=== PATIENT | male | born 1950 | race Caucasian/White ===

== ENCOUNTER 2023-09-22 23:14 | Emergency (ER) | payer OTHER | END 2023-09-23 03:17 | disposition home or self-care (01) | LOC: JER 23:14 | DX: R45.6 Violent behavior (principal); R45.1 Restlessness and agitation | CPT/HCPCS: 99283-25 ==

== ENCOUNTER 2023-10-02 17:56 | Inpatient (IN) | payer OTHER ==
[2023-10-02 18:33] VITALS: BMI 28.3
[2023-10-02 20:03] LABS: BASO % 0.6 % (0-2.0); EOS % 1.2 % (0-4.5); HEMATOCRIT 43.6 % (35.4-49); HEMOGLOBIN 14.8 GM/dL (11.7-16.9); LYMPH % 14.6 % (8-40); MCH 30.7 pg (25.7-33.7); MCHC 34.1 g/dl (32.0-35.9); MEAN CELL VOLUME 90.3 fl (80-96); MEAN PLT VOLUME 8.3 fl (7.5-11.1); NEUT % 76.6 % (42.8-82.8); PLATELET COUNT 208 10^3/uL (134-434); RBC 4.83 M/mm3 (4.00-5.60); RDW 16.4 % (11.9-15.9); WHITE BLOOD COUNT 9.8 K/mm3 (4.0-10.0)
[2023-10-02 20:16] LABS: INR 1.28 (0.83-1.09); PROTHROMBIN TIME (PATIENT) 14.8 SEC (9.7-13.0)
[2023-10-02 20:18] LABS: ACTIVATED PTT 37.4 SECONDS (25.2-36.5)
[2023-10-02 20:20] LABS: POTASSIUM 5.6 mmol/L (3.5-5.1)
[2023-10-02 20:22] LABS: CALCIUM 9.1 mg/dL (8.5-10.1)
[2023-10-02 20:23] LABS: ALBUMIN 3.6 g/dl (3.4-5.0); BLOOD UREA NITROGEN 17.1 mg/dL (7-18)
[2023-10-02 20:26] LABS: CREATININE 0.8 mg/dL (0.55-1.3)
[2023-10-02 20:27] LABS: BILIRUBIN,TOTAL 0.9 mg/dL (0.2-1); TOT PROT 7.4 g/dl (6.4-8.2)
[2023-10-02] MEDS: SODIUM CHLORIDE 0.9% 500 ML INFUS.BAG IV ONE (21:08)
[2023-10-02 21:44] LABS: CHLORIDE 96 mmol/L (98-107); SODIUM 135 mmol/L (136-145)
[2023-10-02 21:45] LABS: BLOOD UREA NITROGEN 18.2 mg/dL (7-18); CO2 28 mmol/L (21-32); GLUCOSE,RANDOM 100 mg/dL (74-106)
[2023-10-02 21:49] LABS: CREATININE 0.8 mg/dL (0.55-1.3)
[2023-10-02 21:55] LABS: ANION GAP 11 mmol/L (4-13); POTASSIUM 6.3 mmol/L (3.5-5.1)
[2023-10-02 22:58] LABS: POTASSIUM 4.5 mmol/L (3.5-5.1)
[2023-10-02 22:59] LABS: CALCIUM 9.2 mg/dL (8.5-10.1)
[2023-10-02 23:00] LABS: BLOOD UREA NITROGEN 16.4 mg/dL (7-18)
[2023-10-02 23:03] LABS: CREATININE 0.9 mg/dL (0.55-1.3)
[2023-10-03] MEDS ORDERED: ACETAMINOPHEN 325 MG TABLET (FP) ONE (01:40)
[2023-10-03] MEDS: ACETAMINOPHEN 500 MG TABLET (FP) PO ONE (02:13)
[2023-10-03 03:30] LABS: PH,URINE 6.5 (5.0-8.0); URINE APPEARANCE CLEAR; URINE BILIRUBIN NEGATIVE (NEGATIVE); URINE COLOR YELLOW; URINE GLUCOSE (UA) NEGATIVE (NEGATIVE); URINE KETONE TRACE (NEGATIVE); URINE LEUK ESTERASE NEGATIVE (NEGATIVE); URINE NITRITE NEGATIVE (NEGATIVE); URINE PROTEIN NEGATIVE (NEGATIVE); URINE UROBILINOGEN 0.2 mg/dL (0.2-1.0)
[2023-10-03 06:16] LABS: BASO % 0.9 % (0-2.0); EOS % 2.9 % (0-4.5); HEMATOCRIT 42.5 % (35.4-49); HEMOGLOBIN 14.1 GM/dL (11.7-16.9); LYMPH % 21.1 % (8-40); MCH 30.3 pg (25.7-33.7); MCHC 33.2 g/dl (32.0-35.9); MEAN CELL VOLUME 91.1 fl (80-96); MEAN PLT VOLUME 8.8 fl (7.5-11.1); MONO % 10.4 % (3.8-10.2); NEUT % 64.7 % (42.8-82.8); PLATELET COUNT 211 10^3/uL (134-434); RBC 4.66 M/mm3 (4.00-5.60); RDW 16.5 % (11.9-15.9); WHITE BLOOD COUNT 7.1 K/mm3 (4.0-10.0)
[2023-10-03 06:33] LABS: POTASSIUM 4.9 mmol/L (3.5-5.1)
[2023-10-03 06:38] LABS: ALBUMIN 3.2 g/dl (3.4-5.0); BLOOD UREA NITROGEN 21.6 mg/dL (7-18); CALCIUM 8.8 mg/dL (8.5-10.1)
[2023-10-03 06:39] LABS: CHOLESTEROL 165 mg/dL (50-200); MAGNESIUM 1.8 mg/dL (1.8-2.4)
[2023-10-03 06:40] LABS: LDL CHOLESTEROL (ONLY SJRH) 89 mg/dL (5-100)
[2023-10-03 06:41] LABS: CREATININE 0.8 mg/dL (0.55-1.3); HDL CHOLESTEROL 68 mg/dL (40-60); PHOSPHOROUS 4.1 mg/dL (2.5-4.9)
[2023-10-03 06:43] LABS: BILIRUBIN,TOTAL 0.7 mg/dL (0.2-1); TOT PROT 6.6 g/dl (6.4-8.2)
[2023-10-03 09:08] LABS: PHENCYCLIDINE,URINE NEGATIVE (NEGATIVE); URINE BENZODIAZEPINES NEGATIVE (NEGATIVE)
[2023-10-03 09:09] LABS: COCAINE, UR NEGATIVE (NEGATIVE); METHADONE, UR NEGATIVE (NEGATIVE); URINE BARBITURATES NEGATIVE (NEGATIVE)
[2023-10-03 09:10] LABS: OPIATES, URI NEGATIVE (NEGATIVE); URINE AMPHETAMINES NEGATIVE (NEGATIVE)
[2023-10-03] MEDS ORDERED: APIXABAN 5 MG TABLET ONE (09:11)
[2023-10-03] MEDS: APIXABAN 5 MG TABLET PO SCH (09:26)
[2023-10-03] MEDS ORDERED: DIVALPROEX SODIUM 500 MG TABLET E.C. ONE (14:25)
[2023-10-03] MEDS: DIVALPROEX SODIUM 500 MG TABLET E.C. PO SCH (14:28)
[2023-10-03] MEDS ORDERED: ATORVASTATIN CA 20 MG TABLET (FP) ONE (17:33)
[2023-10-03] MEDS: ATORVASTATIN CA 20 MG TABLET (FP) PO ONE (17:36)
[2023-10-04] MEDS: ATORVASTATIN CA 20 MG TABLET (FP) PO SCH (21:28)
[2023-10-05] MEDS: ACETAMINOPHEN 325 MG TABLET (FP) PO PRN (01:26)
[2023-10-05] MEDS: OLANZapine 2.5 MG TABLET PO SCH (21:23)
[2023-10-09 14:13] VITALS: RESP 18
[2023-10-10 14:27] VITALS: BP 143/62; PULSE 84; TEMP 98.2
== END 2023-10-10 19:20 | DRG 313 ==
LOC: JER 17:56 → JERBED 21:07 → OBSVTOIN 10-03 14:55 → J5S 10-03 19:54
PROVIDERS: ADMIT Internal Medicine; ATTEND Internal Medicine
DX: R07.89 Other chest pain (principal); I50.22 Chronic systolic (congestive) heart failure; I25.10 Atherosclerotic heart disease of native coronary artery without angina pectoris; J44.9 Chronic obstructive pulmonary disease, unspecified; I48.91 Unspecified atrial fibrillation; I25.2 Old myocardial infarction; I11.0 Hypertensive heart disease with heart failure; F31.9 Bipolar disorder, unspecified; F03.90 Unspecified dementia, unspecified severity, without behavioral disturbance, psychotic disturbance, mood disturbance, and anxiety; R73.9 Hyperglycemia, unspecified; E87.5 Hyperkalemia; R00.2 Palpitations
CPT/HCPCS: 36415; 71045-TC-FY; 80048; 80053; 80061; 80307; 81003; 83036; 83735; 84100; 84443; 84484; 85025; 85610; 85730; 87086; 87635; 93005; 93010; 97116-GP; 97162-GP; 99285-25; G0378

== ENCOUNTER 2024-06-29 17:52 | Inpatient (IN) | payer OTHER ==
[2024-06-29] MEDS ORDERED: ALBUTEROL SO4 2.5/IPRATROPIUM 0.5 INH SOL 3 ML VIAL.NEB. NEB ONE (18:07)
[2024-06-29] MEDS ORDERED: methylPREDNISolone NA SUCC 125 MG/2 ML VIAL ONE (18:08)
[2024-06-29] MEDS ORDERED: RAPID SEQUENCE INTUBATION KIT NR ONE (18:13)
[2024-06-29] MEDS ORDERED: ROCURONIUM BROMIDE 50 MG/5 ML SYRINGE ONE (18:14)
[2024-06-29] MEDS ORDERED: NOREPINEPHRINE BITARTRATE/D5W 8 MG/250 ML BAG IVPB ONE (18:23)
[2024-06-29] MEDS: ETOMIDATE 20 MG/10 ML VIAL IVPUSH ONE (18:24)
[2024-06-29] MEDS: ROCURONIUM BROMIDE 50 MG/5 ML VIAL IV ONE (18:24)
[2024-06-29] MEDS: ALBUTEROL SO4 2.5/IPRATROPIUM 0.5 INH SOL 3 ML VIAL.NEB. NEB ONE (18:36)
[2024-06-29] MEDS: methylPREDNISolone NA SUCC 125 MG/2 ML VIAL IVPB ONE (18:36)
[2024-06-29] MEDS: SODIUM CHLORIDE 0.9% 1000 ML INFUS.BAG IV STA (18:40)
[2024-06-29] MEDS ORDERED: VANCOMYCIN 1 GM PREMIX (F) 1 GM/200 ML BAG ONE ×2 (19:20)
[2024-06-29] MEDS ORDERED: PIPERACILLIN/TAZOB 3.375 GM 3.375 GM/50 ML BAG IVPB ONE (19:20)
[2024-06-29] MEDS: PIPERACILLIN/TAZOB 3.375 GM 3.375 GM in DEXTROSE 5%-WATER - 50 ML IVPB ONE (19:27)
[2024-06-29] MEDS ORDERED: PROPOFOL 1,000,000 MCG/100 ML VIAL ONE (19:32)
[2024-06-29] MEDS ORDERED: ACETAMINOPHEN INJECTION 100 ML ONE (19:35)
[2024-06-29] MEDS ORDERED: ACETAMINOPHEN 1000 MG/100 ML BAG IVPB PRN (19:45)
[2024-06-29 19:46] LABS: VENOUS BASE EXCESS -5.4 mmol/L (-2-2); VENOUS O2 SATURATION 59.4 % (70-80); VENOUS PCO2 60.1 mmHg (38-52); VENOUS PH 7.207 (7.310-7.410)
[2024-06-29] MEDS: VANCOMYCIN 1,000 MG in DEXTROSE 5%-WATER - 250 ML IVPB ONE (19:47)
[2024-06-29] MEDS: PROPOFOL 1,000,000 MCG/100 ML VIAL IVPB SCH (19:47)
[2024-06-29 19:48] LABS: BASO % 0.2 % (0-2.0); EOS % 0.1 % (0-4.5); EPI CELLS 0 /uL (0-25.1); HEMATOCRIT 36.7 % (35.4-49); HEMOGLOBIN 12.1 GM/dL (11.7-16.9); HYALINE CASTS 2 /uL (0-3.1); LYMPH % 6.9 % (8-40); MCH 31.7 pg (25.7-33.7); MCHC 33.1 g/dl (32.0-35.9); MEAN PLT VOLUME 8.9 fl (7.5-11.1); MONO % 8.9 % (3.8-10.2); NEUT % 83.9 % (42.8-82.8); PLATELET COUNT 423 10^3/uL (134-434); RBC 3.82 M/mm3 (4.00-5.60); RDW 16.2 % (11.9-15.9); URINE APPEARANCE CLOUDY; URINE BACTERIA 397 /uL (0-1359); URINE BILIRUBIN 1+ (NEGATIVE); URINE COLOR DK YELLOW; URINE GLUCOSE (UA) NEGATIVE (NEGATIVE); URINE KETONE TRACE (NEGATIVE); URINE LEUK ESTERASE 1+ (NEGATIVE); URINE NITRITE NEGATIVE (NEGATIVE); URINE PROTEIN TRACE (NEGATIVE); URINE RBC 63 /uL (0-23.9); URINE WBC 266 /uL (0-25.8); WHITE BLOOD COUNT 11.8 K/mm3 (4.0-10.0)
[2024-06-29] MEDS: ACETAMINOPHEN 1000 MG/100 ML BAG IVPB ONE (19:48)
[2024-06-29] MEDS ORDERED: SODIUM CHLORIDE FOR INHALATION 3 ML VIAL.NEB IH PRN (19:49)
[2024-06-29 19:52] LABS: INR 1.5 (0.83-1.09); PROTHROMBIN TIME (PATIENT) 16.8 SEC (9.7-13.0)
[2024-06-29 19:55] LABS: ACTIVATED PTT 34.3 SECONDS (25.2-36.5)
[2024-06-29] MEDS ORDERED: PANTOPRAZOLE SODIUM 40 MG VIAL ONE (20:03)
[2024-06-29 20:08] LABS: POTASSIUM 4.7 mmol/L (3.5-5.1)
[2024-06-29 20:10] LABS: CALCIUM 8.5 mg/dL (8.5-10.1)
[2024-06-29 20:11] LABS: ALBUMIN 1.8 g/dl (3.4-5.0); BLOOD UREA NITROGEN 46.9 mg/dL (7-18)
[2024-06-29 20:15] LABS: CREATININE 1.2 mg/dL (0.55-1.3)
[2024-06-29 20:17] LABS: BILIRUBIN,TOTAL 0.7 mg/dL (0.2-1); TOT PROT 6.4 g/dl (6.4-8.2)
[2024-06-29 20:18] LABS: LACTIC ACID 3.7 mmol/L (0.4-2.0)
[2024-06-29] MEDS: FENTANYL NS IVPB 500 MCG/100 ML BAG IVPB SCH (20:35)
[2024-06-29] MEDS ORDERED: ONDANSETRON 4 MG/2 ML VIAL IVPUSH PRN (21:00)
[2024-06-29] MEDS: CHLORHEXIDINE GLUCONATE 4% CLEANSER FOR DECOLONIZATION TP SCH (21:05)
[2024-06-29] MEDS: LACTATED RINGERS SOLUTION 1000 ML INFUS.BAG IV ONE (21:30)
[2024-06-29] MEDS: NOREPINEPHRINE BITARTRATE 4,000 MCG in DEXTROSE 5%-WATER - 496 ML IV SCH (21:30)
[2024-06-29] MEDS ORDERED: NOREPINEPHRINE BITARTRATE 4 MG/4 ML ML IV ONE (21:35)
[2024-06-29] MEDS: MUPIROCIN 2% TOPICAL OINTMENT FOR DECOLONIZATION NS SCH (22:41)
[2024-06-29] MEDS: APIXABAN 5 MG TABLET OG SCH (23:00)
[2024-06-29] MEDS: ATORVASTATIN CA 20 MG TABLET (FP) PO SCH (23:00)
[2024-06-29] MEDS: PANTOPRAZOLE 40 MG TABLET PO SCH (23:00)
[2024-06-30] MEDS: NOREPINEPHRINE BITARTRATE/D5W 8 MG/250 ML BAG IVPB SCH
[2024-06-30] MEDS: HYDROCORTISONE SOD SUCCINATE 100 MG/2 ML VIAL IVPB SCH (00:05)
[2024-06-30 00:30] LABS: ARTERIAL BLD GAS O2 SATURATION 98.7 % (95-98); ARTERIAL BLOOD GAS BASE EXCESS -4.6 mmol/L (-2-2); ARTERIAL BLOOD GAS PO2 146.8 mmHg (80-100); ARTERIAL BLOOD GAS pH 7.309 (7.350-7.450)
[2024-06-30 01:25] LABS: CHLORIDE 108 mmol/L (98-107); POTASSIUM 4.8 mmol/L (3.5-5.1); SODIUM 138 mmol/L (136-145)
[2024-06-30 01:28] LABS: CALCIUM 7.6 mg/dL (8.5-10.1); MAGNESIUM 1.8 mg/dL (1.8-2.4)
[2024-06-30 01:29] LABS: ANION GAP 6 mmol/L (4-13); BLOOD UREA NITROGEN 47.3 mg/dL (7-18); CO2 25 mmol/L (21-32); GLUCOSE,RANDOM 205 mg/dL (74-106)
[2024-06-30 01:31] LABS: BILIRUBIN,DIRECT 0.3 mg/dL (0.0-0.2); SGOT/AST 103 U/L (15-37); SGPT/ALT 42 U/L (13-61)
[2024-06-30 01:32] LABS: PHOSPHOROUS 5.4 mg/dL (2.5-4.9)
[2024-06-30 01:33] LABS: ALBUMIN 1.3 g/dl (3.4-5.0); TOT PROT 4.8 g/dl (6.4-8.2)
[2024-06-30 01:35] LABS: ALK PHOS 89 U/L (45-117); BILIRUBIN,TOTAL 0.5 mg/dL (0.2-1)
[2024-06-30] MEDS ORDERED: methylPREDNISolone NA SUCC 40 MG/1 ML VIAL IVPUSH SCH (02:00)
[2024-06-30] MEDS: PIPERACILLIN/TAZOB 4.5 GM 4.5 GM/100 ML BAG IVPB SCH (02:22)
[2024-06-30] MEDS: VASopressin 40 UNITS/100 ML BAG IV SCH (06:57)
[2024-06-30 07:43] LABS: ARTERIAL BLD GAS O2 SATURATION 96.5 % (95-98); ARTERIAL BLOOD GAS PO2 88.3 mmHg (80-100); ARTERIAL BLOOD GAS pH 7.368 (7.350-7.450)
[2024-06-30 07:45] LABS: BASO % 0.1 % (0-2.0); HEMATOCRIT 28.7 % (35.4-49); HEMOGLOBIN 9.6 GM/dL (11.7-16.9); LYMPH % 4.7 % (8-40); MCH 31.8 pg (25.7-33.7); MCHC 33.6 g/dl (32.0-35.9); MEAN CELL VOLUME 94.7 fl (80-96); MEAN PLT VOLUME 8.4 fl (7.5-11.1); MONO % 5.7 % (3.8-10.2); NEUT % 89.5 % (42.8-82.8); PLATELET COUNT 415 10^3/uL (134-434); RBC 3.03 M/mm3 (4.00-5.60); RDW 16.1 % (11.9-15.9); WHITE BLOOD COUNT 15.3 K/mm3 (4.0-10.0)
[2024-06-30] MEDS ORDERED: VANCOMYCIN HCL 1,500 MG in DEXTROSE 5%-WATER - 500 ML IVPB SCH (08:00)
[2024-06-30] MEDS: MIDAZOLAM IN 0.9 % SOD.CHLORID 100 MG/100 ML PLAST..BAG IVPB SCH (08:12)
[2024-06-30] MEDS: ALBUTEROL SO4 2.5/IPRATROPIUM 0.5 INH SOL 3 ML VIAL.NEB. NEB SCH (08:39)
[2024-06-30] MEDS: INSULIN ASPART SLIDING SCALE (NOVOLOG) 1 VIAL SQ SCH (08:57)
[2024-06-30] MEDS: VANCOMYCIN PREMIX 1.5 GM 1,500 MG/300 ML BAG IVPB SCH (08:58)
[2024-06-30] MEDS ORDERED: ENOXAPARIN NA (PORCINE) 40 MG/0.4 ML DISP.SYRIN SQ SCH (10:00)
[2024-06-30] MEDS: DOPAMINE 400 MG/D5W - 400,000 MCG/250 ML INFUS.BAG IVPB SCH (11:20)
[2024-06-30] MEDS: ARIPiprazole 10 MG TABLET PO SCH (11:46)
[2024-06-30] MEDS: PANTOPRAZOLE SODIUM 40 MG VIAL IVPUSH SCH (12:05)
[2024-06-30] MEDS: VANCOMYCIN/WATER 1250 MG 1,250 MG/250 ML BAG IVPB SCH (21:49)
[2024-06-30] MEDS: LACTATED RINGERS SOLUTION 1000 ML INFUS.BAG IV ONE (23:10)
[2024-07-01] MEDS: PIPERACILLIN/TAZOB 4.5 GM 4.5 GM/100 ML BAG IVPB SCH (01:31)
[2024-07-01 06:20] LABS: ARTERIAL BLD GAS O2 SATURATION 99.1 % (95-98); ARTERIAL BLOOD GAS BASE EXCESS -3.7 mmol/L (-2-2); ARTERIAL BLOOD GAS PO2 165.7 mmHg (80-100); ARTERIAL BLOOD GAS pH 7.377 (7.350-7.450)
[2024-07-01 06:25] LABS: VENT MODE ALC; VENT RATE 14
[2024-07-01] MEDS: LACTATED RINGERS SOLUTION 1000 ML INFUS.BAG IV ONE (06:54)
[2024-07-01 07:15] LABS: HEMATOCRIT 24.9 % (35.4-49); HEMOGLOBIN 8.4 GM/dL (11.7-16.9); LYMPH % 7.2 % (8-40); MCH 31.8 pg (25.7-33.7); MCHC 33.8 g/dl (32.0-35.9); MEAN CELL VOLUME 93.9 fl (80-96); MEAN PLT VOLUME 8.3 fl (7.5-11.1); MONO % 6.3 % (3.8-10.2); NEUT % 86.5 % (42.8-82.8); PLATELET COUNT 293 10^3/uL (134-434); RBC 2.65 M/mm3 (4.00-5.60); RDW 16.3 % (11.9-15.9); WHITE BLOOD COUNT 9.7 K/mm3 (4.0-10.0)
[2024-07-01 07:22] LABS: POTASSIUM 4.1 mmol/L (3.5-5.1)
[2024-07-01 07:30] LABS: ALBUMIN 1.3 g/dl (3.4-5.0); BLOOD UREA NITROGEN 43.4 mg/dL (7-18)
[2024-07-01 07:33] LABS: CREATININE 0.6 mg/dL (0.55-1.3); PHOSPHOROUS 3.6 mg/dL (2.5-4.9)
[2024-07-01 07:34] LABS: BILIRUBIN,TOTAL 0.5 mg/dL (0.2-1); TOT PROT 4.6 g/dl (6.4-8.2)
[2024-07-01] MEDS: FLUDROCORTISONE ACETATE 0.1 MG TABLET (FP) PO SCH (10:17)
[2024-07-01] MEDS: VALPROATE SODIUM 250 MG/5 ML UNIT DOSE CUP NGT SCH (17:27)
[2024-07-01 21:20] LABS: HEMATOCRIT 28.8 % (35.4-49); MCH 30.9 pg (25.7-33.7); MCHC 31.1 g/dl (32.0-35.9); MEAN CELL VOLUME 99.3 fl (80-96); MEAN PLT VOLUME 8.1 fl (7.5-11.1); PLATELET COUNT 334 10^3/uL (134-434); RDW 17.3 % (11.9-15.9); WHITE BLOOD COUNT 11.2 K/mm3 (4.0-10.0)
[2024-07-01] MEDS: OLANZapine 2.5 MG TABLET NGT SCH (21:35)
[2024-07-01] MEDS: ATORVASTATIN CA 20 MG TABLET (FP) NGT SCH (21:35)
[2024-07-01] MEDS ORDERED: APIXABAN 5 MG TABLET OG SCH (22:00)
[2024-07-01] MEDS ORDERED: ATORVASTATIN CA 20 MG TABLET (FP) PO SCH (22:00)
[2024-07-01] MEDS ORDERED: OLANZapine 2.5 MG TABLET PO SCH (22:00)
[2024-07-01] MEDS ORDERED: DIVALPROEX SODIUM 500 MG TABLET E.C. PO SCH (22:00)
[2024-07-02] MEDS ORDERED: DEXMEDETOMIDINE IN 0.9 % NACL 400 MCG/100 ML BAG IVPB SCH (06:45)
[2024-07-02] MEDS ORDERED: AMIODARONE IN DEXTROSE,ISO-OSM 360 MG/200 ML BAG ONE (06:47)
[2024-07-02] MEDS ORDERED: AMIODARONE HCL 150 MG/3 ML VIAL ONE (06:49)
[2024-07-02 06:55] LABS: HEMATOCRIT 26.7 % (35.4-49); HEMOGLOBIN 8.6 GM/dL (11.7-16.9); MCH 30.8 pg (25.7-33.7); MCHC 32.3 g/dl (32.0-35.9); MEAN CELL VOLUME 95.3 fl (80-96); MEAN PLT VOLUME 8.2 fl (7.5-11.1); PLATELET COUNT 370 10^3/uL (134-434); RDW 16.5 % (11.9-15.9); WHITE BLOOD COUNT 10.6 K/mm3 (4.0-10.0)
[2024-07-02] MEDS: AMIODARONE IN DEXTROSE,ISO-OSM 150 MG/100 ML BAG IVPB ONE (07:06)
[2024-07-02 07:14] LABS: POTASSIUM 3.7 mmol/L (3.5-5.1)
[2024-07-02 07:16] LABS: CALCIUM 8.3 mg/dL (8.5-10.1); MAGNESIUM 2.1 mg/dL (1.8-2.4)
[2024-07-02 07:17] LABS: ALBUMIN 1.3 g/dl (3.4-5.0)
[2024-07-02 07:18] LABS: BLOOD UREA NITROGEN 37.1 mg/dL (7-18)
[2024-07-02 07:21] LABS: BILIRUBIN,TOTAL 0.3 mg/dL (0.2-1); CREATININE 0.6 mg/dL (0.55-1.3); PHOSPHOROUS 1.7 mg/dL (2.5-4.9); TOT PROT 4.5 g/dl (6.4-8.2)
[2024-07-02] MEDS: MAGNESIUM SULFATE IN WATER 2 GM/50 ML IVPB IVPB ONE (08:02)
[2024-07-02] MEDS: APIXABAN 5 MG TABLET PO SCH (09:03)
[2024-07-02] MEDS: CLOPIDOGREL BISULFATE 75 MG TABLET (FP) NGT SCH (09:03)
[2024-07-02] MEDS: ASPIRIN 81 MG CHEWABLE TABLETS NGT SCH (09:03)
[2024-07-02] MEDS: ARIPiprazole 10 MG TABLET PO SCH (09:04)
[2024-07-02] MEDS ORDERED: ASPIRIN COATED 81 MG TABLET.EC PO SCH (10:00)
[2024-07-02] MEDS ORDERED: CLOPIDOGREL BISULFATE 75 MG TABLET (FP) PO SCH (10:00)
[2024-07-02] MEDS: DIVALPROEX SODIUM 500 MG TABLET E.C. PO SCH (12:52)
[2024-07-02] MEDS: NAPH,MB-DB/K PH,MBDB POWDER PACKET PO ONE (12:52)
[2024-07-02 14:35] VITALS: BMI 24.1
[2024-07-02] MEDS ORDERED: METOPROLOL TARTRATE 5 MG/5 ML VIAL IVPUSH PRN (15:12)
[2024-07-02] MEDS: METOPROLOL TARTRATE 5 MG/5 ML VIAL IVPUSH PRN (15:30)
[2024-07-02] MEDS: ATORVASTATIN CA 20 MG TABLET (FP) PO SCH (21:12)
[2024-07-02] MEDS: DABIGATRAN ETEXILATE MESYLATE 75 MG CAPSULE PO SCH (21:12)
[2024-07-02] MEDS: OLANZapine 2.5 MG TABLET PO SCH (21:12)
[2024-07-03 07:17] LABS: HEMATOCRIT 26.1 % (35.4-49); HEMOGLOBIN 8.8 GM/dL (11.7-16.9); MCH 31.4 pg (25.7-33.7); MCHC 33.7 g/dl (32.0-35.9); MEAN CELL VOLUME 93.2 fl (80-96); MEAN PLT VOLUME 8.1 fl (7.5-11.1); PLATELET COUNT 303 10^3/uL (134-434); RDW 16.3 % (11.9-15.9); WHITE BLOOD COUNT 8.6 K/mm3 (4.0-10.0)
[2024-07-03 07:31] LABS: POTASSIUM 3.9 mmol/L (3.5-5.1)
[2024-07-03 07:38] LABS: CALCIUM 8.1 mg/dL (8.5-10.1)
[2024-07-03 07:39] LABS: ALBUMIN 1.4 g/dl (3.4-5.0); BLOOD UREA NITROGEN 27.8 mg/dL (7-18); MAGNESIUM 1.7 mg/dL (1.8-2.4)
[2024-07-03 07:41] LABS: BILIRUBIN,TOTAL 0.4 mg/dL (0.2-1); TOT PROT 4.5 g/dl (6.4-8.2)
[2024-07-03 07:42] LABS: CREATININE 0.5 mg/dL (0.55-1.3); PHOSPHOROUS 1.9 mg/dL (2.5-4.9)
[2024-07-03] MEDS: ASPIRIN 81 MG CHEWABLE TABLETS PO SCH (09:00)
[2024-07-03] MEDS: CLOPIDOGREL BISULFATE 75 MG TABLET (FP) PO SCH (09:00)
[2024-07-03] MEDS: NAPH,MB-DB/K PH,MBDB POWDER PACKET PO ONE (10:31)
[2024-07-03] MEDS: MAGNESIUM SULFATE IN WATER 2 GM/50 ML IVPB IVPB ONE (10:31)
[2024-07-03] MEDS ORDERED: MIDAZOLAM IN 0.9 % SOD.CHLORID 1 MG/1 ML PLAST..BAG ONE (14:17)
[2024-07-03] MEDS ORDERED: DEXTROSE 50%-WATER 25 GM/50 ML DISP.SYRIN ONE (14:17)
[2024-07-03] MEDS ORDERED: ONDANSETRON 4 MG/2 ML VIAL IVPUSH PRN (15:54)
[2024-07-03] MEDS ORDERED: SODIUM CHLORIDE FOR INHALATION 3 ML VIAL.NEB IH PRN (15:54)
[2024-07-03] MEDS: ALBUTEROL SO4 2.5/IPRATROPIUM 0.5 INH SOL 3 ML VIAL.NEB. NEB SCH (16:39)
[2024-07-03] MEDS: PIPERACILLIN/TAZOB 4.5 GM 4.5 GM in DEXTROSE 5%-WATER 100 ML IVPB SCH (17:48)
[2024-07-03] MEDS: AMIODARONE IN DEXTROSE,ISO-OSM 360 MG/200 ML BAG IV SCH (17:49)
[2024-07-03] MEDS: DABIGATRAN ETEXILATE MESYLATE 75 MG CAPSULE PO SCH ×2 (17:49→21:04)
[2024-07-03] MEDS: MIDAZOLAM HCL 2 MG/2 ML SINGLE DOSE VIAL IVPUSH ONE ×2 (17:49→17:50)
[2024-07-03] MEDS: ASPIRIN 81 MG CHEWABLE TABLETS NGT ONE (17:49)
[2024-07-03] MEDS: ACETAMINOPHEN 1000 MG/100 ML BAG IVPB PRN (17:57)
[2024-07-03] MEDS: PIPERACILLIN/TAZOB 4.5 GM 4.5 GM/100 ML BAG IVPB SCH (17:57)
[2024-07-03] MEDS: INSULIN ASPART SLIDING SCALE (NOVOLOG) 1 VIAL SQ SCH (19:19)
[2024-07-03] MEDS: VANCOMYCIN/WATER 1250 MG 1,250 MG/250 ML BAG IVPB SCH (21:03)
[2024-07-03] MEDS: OLANZapine 2.5 MG TABLET PO SCH (21:03)
[2024-07-03] MEDS: DIVALPROEX SODIUM 500 MG TABLET E.C. PO SCH (21:03)
[2024-07-03] MEDS: ATORVASTATIN CA 20 MG TABLET (FP) PO SCH (21:04)
[2024-07-03] MEDS ORDERED: MUPIROCIN 2% TOPICAL OINTMENT FOR DECOLONIZATION NS SCH (22:00)
[2024-07-03] MEDS ORDERED: CHLORHEXIDINE GLUCONATE 4% CLEANSER FOR DECOLONIZATION TP SCH (22:00)
[2024-07-04 08:28] LABS: BASO % 0.4 % (0-2.0); EOS % 0.8 % (0-4.5); HEMATOCRIT 27.8 % (35.4-49); HEMOGLOBIN 9.1 GM/dL (11.7-16.9); LYMPH % 12.9 % (8-40); MCH 31.1 pg (25.7-33.7); MCHC 32.9 g/dl (32.0-35.9); MEAN CELL VOLUME 94.5 fl (80-96); MEAN PLT VOLUME 8.2 fl (7.5-11.1); MONO % 5.9 % (3.8-10.2); PLATELET COUNT 302 10^3/uL (134-434); RBC 2.94 M/mm3 (4.00-5.60); RDW 16.2 % (11.9-15.9); WHITE BLOOD COUNT 11.9 K/mm3 (4.0-10.0)
[2024-07-04 08:47] LABS: POTASSIUM 3.8 mmol/L (3.5-5.1)
[2024-07-04 08:54] LABS: BLOOD UREA NITROGEN 17.2 mg/dL (7-18); CREATININE 0.4 mg/dL (0.55-1.3); MAGNESIUM 1.8 mg/dL (1.8-2.4)
[2024-07-04 08:57] LABS: PHOSPHOROUS 2.5 mg/dL (2.5-4.9)
[2024-07-04] MEDS: ASPIRIN 81 MG CHEWABLE TABLETS PO SCH (10:08)
[2024-07-04] MEDS: CLOPIDOGREL BISULFATE 75 MG TABLET (FP) PO SCH (10:08)
[2024-07-04] MEDS: ARIPiprazole 10 MG TABLET PO SCH (10:08)
[2024-07-04] MEDS: PANTOPRAZOLE SODIUM 40 MG VIAL IVPUSH SCH (10:09)
[2024-07-04] MEDS: BISMUTH SUBSALICYLATE 524 MG/30 ML PO ONE (12:03)
[2024-07-04] MEDS: AMINO ACIDS/PROTEIN HYDROLYS 30 ML LIQUID.PKT PO SCH (18:35)
[2024-07-04] MEDS: ZINC OXIDE 20% TOPICAL OINTMENT 30 GM TUBE TP SCH (18:35)
[2024-07-05 08:13] LABS: HEMATOCRIT 26.5 % (35.4-49); HEMOGLOBIN 8.7 GM/dL (11.7-16.9); MCH 30.9 pg (25.7-33.7); MCHC 32.9 g/dl (32.0-35.9); MEAN CELL VOLUME 94.1 fl (80-96); MEAN PLT VOLUME 8.6 fl (7.5-11.1); PLATELET COUNT 269 10^3/uL (134-434); RBC 2.82 M/mm3 (4.00-5.60); RDW 16.3 % (11.9-15.9)
[2024-07-05 08:33] LABS: POTASSIUM 3.6 mmol/L (3.5-5.1)
[2024-07-05 08:40] LABS: CALCIUM 7.7 mg/dL (8.5-10.1)
[2024-07-05 08:41] LABS: ALBUMIN 1.5 g/dl (3.4-5.0); BLOOD UREA NITROGEN 17.4 mg/dL (7-18); MAGNESIUM 1.7 mg/dL (1.8-2.4)
[2024-07-05 08:44] LABS: CREATININE 0.5 mg/dL (0.55-1.3); PHOSPHOROUS 2.6 mg/dL (2.5-4.9)
[2024-07-05 08:45] LABS: BILIRUBIN,TOTAL 0.6 mg/dL (0.2-1); TOT PROT 4.3 g/dl (6.4-8.2)
[2024-07-05] MEDS: traMADol HCL 50 MG TABLET PO PRN (12:25)
[2024-07-05] MEDS: MULTIVITAMINS (DAILY MVI) TABLET (FP) PO SCH (12:27)
[2024-07-05] MEDS: ASCORBIC ACID 500 MG TABLET (FP) PO SCH (12:27)
[2024-07-05] MEDS: LACTOBACILLUS ACIDOPHILUS 1 TABLET PO SCH (22:26)
[2024-07-06 08:51] LABS: HEMATOCRIT 27.5 % (35.4-49); HEMOGLOBIN 8.9 GM/dL (11.7-16.9); MCHC 32.4 g/dl (32.0-35.9); MEAN CELL VOLUME 95.9 fl (80-96); MEAN PLT VOLUME 8.6 fl (7.5-11.1); PLATELET COUNT 321 10^3/uL (134-434); POTASSIUM 3.5 mmol/L (3.5-5.1); RBC 2.87 M/mm3 (4.00-5.60); RDW 16.2 % (11.9-15.9)
[2024-07-06 08:54] LABS: ALBUMIN 1.5 g/dl (3.4-5.0); BLOOD UREA NITROGEN 16.7 mg/dL (7-18); CALCIUM 7.6 mg/dL (8.5-10.1); MAGNESIUM 1.7 mg/dL (1.8-2.4)
[2024-07-06 08:57] LABS: CREATININE 0.5 mg/dL (0.55-1.3); PHOSPHOROUS 2.5 mg/dL (2.5-4.9)
[2024-07-06 08:59] LABS: BILIRUBIN,TOTAL 0.8 mg/dL (0.2-1); TOT PROT 4.6 g/dl (6.4-8.2)
[2024-07-06 09:08] LABS: IRON SERUM 22 ug/dL (50-175)
[2024-07-06 09:09] LABS: TOTAL IRON BINDING CAPACITY 133 ug/dL (250-450)
[2024-07-06] MEDS: MAGNESIUM 2GM/50ML STERILE WATER IVPB IVPB ONE (11:26)
[2024-07-07] MEDS: VANCOMYCIN/WATER FOR INJ (PEG) 1,000 MG/200 ML BAG IVPB SCH (12:11)
[2024-07-07] MEDS: VANCOMYCIN/WATER 1250 MG 1,250 MG/250 ML BAG IVPB ONE (17:16)
[2024-07-08 08:48] LABS: BASO % 0.4 % (0-2.0); EOS % 1.1 % (0-4.5); HEMATOCRIT 25.2 % (35.4-49); HEMOGLOBIN 8.5 GM/dL (11.7-16.9); LYMPH % 11.9 % (8-40); MCH 31.8 pg (25.7-33.7); MCHC 33.7 g/dl (32.0-35.9); MEAN CELL VOLUME 94.3 fl (80-96); MEAN PLT VOLUME 8.3 fl (7.5-11.1); MONO % 7.8 % (3.8-10.2); NEUT % 78.8 % (42.8-82.8); PLATELET COUNT 336 10^3/uL (134-434); RBC 2.67 M/mm3 (4.00-5.60); RDW 16.9 % (11.9-15.9)
[2024-07-08 09:04] LABS: POTASSIUM 3.4 mmol/L (3.5-5.1)
[2024-07-08 09:08] LABS: CALCIUM 7.8 mg/dL (8.5-10.1)
[2024-07-08 09:09] LABS: ALBUMIN 1.5 g/dl (3.4-5.0)
[2024-07-08 09:12] LABS: CREATININE 0.4 mg/dL (0.55-1.3); MAGNESIUM 1.9 mg/dL (1.8-2.4)
[2024-07-08 09:14] LABS: PHOSPHOROUS 2.8 mg/dL (2.5-4.9)
[2024-07-08 09:16] LABS: BILIRUBIN,TOTAL 0.7 mg/dL (0.2-1)
[2024-07-08 09:19] LABS: TOT PROT 4.7 g/dl (6.4-8.2)
[2024-07-08] MEDS: COLLAGENASE CLOSTRIDIUM HIST. 30 GRAMS TUBE TP SCH (12:05)
[2024-07-08] MEDS ORDERED: SODIUM CHLORIDE FOR INHALATION 3 ML VIAL.NEB IH PRN (18:25)
[2024-07-08] MEDS ORDERED: ONDANSETRON 4 MG/2 ML VIAL IVPUSH PRN (18:25)
[2024-07-08] MEDS ORDERED: traMADol HCL 50 MG TABLET PO PRN (18:25)
[2024-07-08] MEDS: FUROSEMIDE 40 MG/4 ML INJECTABLE VIAL IVPUSH ONE (18:42)
[2024-07-08] MEDS: ALBUTEROL SO4 2.5/IPRATROPIUM 0.5 INH SOL 3 ML VIAL.NEB. NEB SCH (20:58)
[2024-07-08] MEDS: ATORVASTATIN CA 20 MG TABLET (FP) PO SCH (21:52)
[2024-07-08] MEDS: DABIGATRAN ETEXILATE MESYLATE 75 MG CAPSULE PO SCH (21:52)
[2024-07-08] MEDS: LACTOBACILLUS ACIDOPHILUS 1 TABLET PO SCH (21:52)
[2024-07-08] MEDS: DIVALPROEX SODIUM 500 MG TABLET E.C. PO SCH (21:52)
[2024-07-08] MEDS: ZINC OXIDE 20% TOPICAL OINTMENT 30 GM TUBE TP SCH (21:52)
[2024-07-08] MEDS: OLANZapine 2.5 MG TABLET PO SCH (21:53)
[2024-07-09] MEDS: INSULIN ASPART SLIDING SCALE (NOVOLOG) 1 VIAL SQ SCH (00:45)
[2024-07-09] MEDS: PIPERACILLIN/TAZOB 4.5 GM 4.5 GM/100 ML BAG IVPB SCH (01:07)
[2024-07-09 08:05] LABS: HEMOGLOBIN 8.4 GM/dL (11.7-16.9); MCHC 33.8 g/dl (32.0-35.9); MEAN CELL VOLUME 94.8 fl (80-96); MEAN PLT VOLUME 7.9 fl (7.5-11.1); PLATELET COUNT 354 10^3/uL (134-434); RBC 2.64 M/mm3 (4.00-5.60); RDW 16.6 % (11.9-15.9); WHITE BLOOD COUNT 8.3 K/mm3 (4.0-10.0)
[2024-07-09 08:22] LABS: POTASSIUM 3.3 mmol/L (3.5-5.1)
[2024-07-09 08:24] LABS: CALCIUM 7.6 mg/dL (8.5-10.1)
[2024-07-09 08:25] LABS: ALBUMIN 1.4 g/dl (3.4-5.0); BLOOD UREA NITROGEN 12.4 mg/dL (7-18); MAGNESIUM 1.8 mg/dL (1.8-2.4)
[2024-07-09 08:28] LABS: CREATININE 0.4 mg/dL (0.55-1.3); PHOSPHOROUS 2.7 mg/dL (2.5-4.9)
[2024-07-09 08:29] LABS: BILIRUBIN,TOTAL 0.6 mg/dL (0.2-1); TOT PROT 4.7 g/dl (6.4-8.2)
[2024-07-09] MEDS: AMINO ACIDS/PROTEIN HYDROLYS 30 ML LIQUID.PKT PO SCH (08:42)
[2024-07-09] MEDS: ARIPiprazole 10 MG TABLET PO SCH (09:58)
[2024-07-09] MEDS: ASPIRIN COATED 81 MG TABLET.EC PO SCH (09:58)
[2024-07-09] MEDS: ASCORBIC ACID 500 MG TABLET (FP) PO SCH (09:58)
[2024-07-09] MEDS: PANTOPRAZOLE SODIUM 40 MG VIAL IVPUSH SCH (09:59)
[2024-07-09] MEDS: MULTIVITAMINS (DAILY MVI) TABLET (FP) PO SCH (09:59)
[2024-07-09] MEDS: VANCOMYCIN/WATER FOR INJ (PEG) 1,000 MG/200 ML BAG IVPB SCH (10:01)
[2024-07-09] MEDS: COLLAGENASE CLOSTRIDIUM HIST. 30 GRAMS TUBE TP SCH (14:22)
[2024-07-10 10:23] LABS: BASO % 0.3 % (0-2.0); EOS % 0.3 % (0-4.5); HEMATOCRIT 24.1 % (35.4-49); HEMOGLOBIN 7.8 GM/dL (11.7-16.9); LYMPH % 5.6 % (8-40); MCH 31.1 pg (25.7-33.7); MCHC 32.5 g/dl (32.0-35.9); MEAN CELL VOLUME 95.6 fl (80-96); MEAN PLT VOLUME 7.9 fl (7.5-11.1); MONO % 3.8 % (3.8-10.2); PLATELET COUNT 384 10^3/uL (134-434); RBC 2.52 M/mm3 (4.00-5.60); RDW 17.5 % (11.9-15.9); WHITE BLOOD COUNT 15.3 K/mm3 (4.0-10.0)
[2024-07-10 10:52] LABS: POTASSIUM 3.2 mmol/L (3.5-5.1)
[2024-07-10 10:54] LABS: ALBUMIN 1.4 g/dl (3.4-5.0); BLOOD UREA NITROGEN 11.6 mg/dL (7-18); CALCIUM 7.8 mg/dL (8.5-10.1)
[2024-07-10 10:57] LABS: CREATININE 0.5 mg/dL (0.55-1.3)
[2024-07-10 10:59] LABS: BILIRUBIN,TOTAL 0.6 mg/dL (0.2-1); TOT PROT 4.7 g/dl (6.4-8.2)
[2024-07-10] MEDS: KCL 10 MEQ IVPB 10 MEQ/100 ML INFUS.BAG IVPB SCH (16:34)
[2024-07-11 07:35] LABS: BASO % 0.3 % (0-2.0); EOS % 1.5 % (0-4.5); HEMATOCRIT 23.6 % (35.4-49); HEMOGLOBIN 7.9 GM/dL (11.7-16.9); LYMPH % 12.9 % (8-40); MCH 31.8 pg (25.7-33.7); MCHC 33.3 g/dl (32.0-35.9); MEAN CELL VOLUME 95.4 fl (80-96); MONO % 6.4 % (3.8-10.2); NEUT % 78.9 % (42.8-82.8); PLATELET COUNT 385 10^3/uL (134-434); RBC 2.47 M/mm3 (4.00-5.60); RDW 18.3 % (11.9-15.9); WHITE BLOOD COUNT 10.1 K/mm3 (4.0-10.0)
[2024-07-11 07:52] LABS: POTASSIUM 3.6 mmol/L (3.5-5.1)
[2024-07-11 07:57] LABS: BLOOD UREA NITROGEN 11.7 mg/dL (7-18); CALCIUM 7.8 mg/dL (8.5-10.1)
[2024-07-11 07:58] LABS: ALBUMIN 1.4 g/dl (3.4-5.0)
[2024-07-11 08:00] LABS: CREATININE 0.4 mg/dL (0.55-1.3)
[2024-07-11 08:02] LABS: BILIRUBIN,TOTAL 0.6 mg/dL (0.2-1); TOT PROT 4.7 g/dl (6.4-8.2)
[2024-07-12 07:47] LABS: BASO % 0.3 % (0-2.0); EOS % 1.4 % (0-4.5); HEMATOCRIT 22.8 % (35.4-49); HEMOGLOBIN 7.6 GM/dL (11.7-16.9); LYMPH % 8.2 % (8-40); MCH 31.9 pg (25.7-33.7); MCHC 33.6 g/dl (32.0-35.9); MEAN CELL VOLUME 94.8 fl (80-96); MEAN PLT VOLUME 7.4 fl (7.5-11.1); MONO % 4.5 % (3.8-10.2); NEUT % 85.6 % (42.8-82.8); PLATELET COUNT 374 10^3/uL (134-434); RDW 18.1 % (11.9-15.9); WHITE BLOOD COUNT 11.8 K/mm3 (4.0-10.0)
[2024-07-12] MEDS ORDERED: MAGNESIUM 1GM/D5W 100ML - 100 ML IVPB IVPB ONE (13:45)
[2024-07-12] MEDS: MAGNESIUM 1GM/D5W 100ML - 100 ML IVPB IVPB ONE (17:47)
[2024-07-12] MEDS ORDERED: INSULIN ASPART SLIDING SCALE (NOVOLOG) 1 VIAL SQ ONE (18:30)
[2024-07-13 11:11] LABS: BASO % 0.2 % (0-2.0); EOS % 1.1 % (0-4.5); HEMATOCRIT 24.5 % (35.4-49); HEMOGLOBIN 7.8 GM/dL (11.7-16.9); LYMPH % 7.3 % (8-40); MCH 30.6 pg (25.7-33.7); MEAN CELL VOLUME 95.7 fl (80-96); MEAN PLT VOLUME 7.8 fl (7.5-11.1); MONO % 4.8 % (3.8-10.2); NEUT % 86.6 % (42.8-82.8); PLATELET COUNT 373 10^3/uL (134-434); RBC 2.56 M/mm3 (4.00-5.60); RDW 19.2 % (11.9-15.9); WHITE BLOOD COUNT 11.1 K/mm3 (4.0-10.0)
[2024-07-13 11:30] LABS: POTASSIUM 3.2 mmol/L (3.5-5.1)
[2024-07-13 11:32] LABS: ALBUMIN 1.3 g/dl (3.4-5.0)
[2024-07-13 11:33] LABS: BLOOD UREA NITROGEN 11.9 mg/dL (7-18); MAGNESIUM 1.8 mg/dL (1.8-2.4)
[2024-07-13 11:36] LABS: CREATININE 0.4 mg/dL (0.55-1.3)
[2024-07-13 11:37] LABS: BILIRUBIN,TOTAL 0.4 mg/dL (0.2-1); TOT PROT 4.6 g/dl (6.4-8.2)
[2024-07-14 09:26] LABS: BASO % 0.4 % (0-2.0); EOS % 1.8 % (0-4.5); HEMATOCRIT 21.5 % (35.4-49); LYMPH % 11.1 % (8-40); MCH 31.5 pg (25.7-33.7); MCHC 32.7 g/dl (32.0-35.9); MEAN CELL VOLUME 96.4 fl (80-96); MEAN PLT VOLUME 7.9 fl (7.5-11.1); MONO % 5.8 % (3.8-10.2); NEUT % 80.9 % (42.8-82.8); PLATELET COUNT 348 10^3/uL (134-434); RBC 2.23 M/mm3 (4.00-5.60); RDW 19.6 % (11.9-15.9); WHITE BLOOD COUNT 8.4 K/mm3 (4.0-10.0)
[2024-07-14 09:53] LABS: POTASSIUM 3.5 mmol/L (3.5-5.1)
[2024-07-14 09:58] LABS: CALCIUM 7.5 mg/dL (8.5-10.1)
[2024-07-14 09:59] LABS: ALBUMIN 1.2 g/dl (3.4-5.0); MAGNESIUM 1.8 mg/dL (1.8-2.4)
[2024-07-14 10:02] LABS: CREATININE 0.4 mg/dL (0.55-1.3)
[2024-07-14 10:03] LABS: BILIRUBIN,TOTAL 0.4 mg/dL (0.2-1)
[2024-07-14] MEDS: CALCIUM 500MG/VIT-D 200 UNITS COMBO TABLET (FP) PO SCH (12:00)
[2024-07-14] MEDS: PANTOPRAZOLE SODIUM 40 MG VIAL IVPUSH SCH (22:16)
[2024-07-15 08:58] LABS: BASO % 0.6 % (0-2.0); EOS % 2.2 % (0-4.5); HEMATOCRIT 25.4 % (35.4-49); HEMOGLOBIN 8.1 GM/dL (11.7-16.9); LYMPH % 11.4 % (8-40); MCH 31.4 pg (25.7-33.7); MCHC 31.9 g/dl (32.0-35.9); MEAN CELL VOLUME 98.5 fl (80-96); MEAN PLT VOLUME 7.9 fl (7.5-11.1); NEUT % 78.8 % (42.8-82.8); PLATELET COUNT 394 10^3/uL (134-434); RBC 2.58 M/mm3 (4.00-5.60); RDW 20.9 % (11.9-15.9); WHITE BLOOD COUNT 9.2 K/mm3 (4.0-10.0)
[2024-07-15 09:27] LABS: ALBUMIN 1.4 g/dl (3.4-5.0); BLOOD UREA NITROGEN 12.5 mg/dL (7-18); CREATININE 0.4 mg/dL (0.55-1.3)
[2024-07-15 09:28] LABS: BILIRUBIN,TOTAL 0.5 mg/dL (0.2-1); CALCIUM 7.9 mg/dL (8.5-10.1); TOT PROT 4.9 g/dl (6.4-8.2)
[2024-07-15 09:59] LABS: ANISOCYTOSIS 2+; MACROCYTOSIS 1+
[2024-07-15] MEDS: ACETAMINOPHEN 1000 MG/100 ML BAG IVPB PRN (11:14)
[2024-07-15] MEDS: GABAPENTIN 100 MG CAPSULE PO SCH (14:36)
[2024-07-15] MEDS: IRON SUCROSE INJECTION 100 MG in SODIUM CHLORIDE 95 ML IVPB ONE (18:49)
[2024-07-16 15:06] VITALS: RESP 20
[2024-07-16 19:47] LABS: BASO % 0.4 % (0-2.0); EOS % 1.8 % (0-4.5); HEMATOCRIT 27.1 % (35.4-49); HEMOGLOBIN 8.4 GM/dL (11.7-16.9); LYMPH % 7.8 % (8-40); MCH 30.5 pg (25.7-33.7); MCHC 31.1 g/dl (32.0-35.9); MEAN CELL VOLUME 98.2 fl (80-96); MEAN PLT VOLUME 7.7 fl (7.5-11.1); MONO % 4.5 % (3.8-10.2); NEUT % 85.5 % (42.8-82.8); PLATELET COUNT 363 10^3/uL (134-434); RBC 2.76 M/mm3 (4.00-5.60); RDW 21.3 % (11.9-15.9); WHITE BLOOD COUNT 8.6 K/mm3 (4.0-10.0)
[2024-07-16 20:10] LABS: POTASSIUM 3.6 mmol/L (3.5-5.1)
[2024-07-16 20:12] LABS: CALCIUM 7.8 mg/dL (8.5-10.1)
[2024-07-16 20:13] LABS: ALBUMIN 1.4 g/dl (3.4-5.0); BLOOD UREA NITROGEN 11.5 mg/dL (7-18); MAGNESIUM 1.7 mg/dL (1.8-2.4)
[2024-07-16 20:16] LABS: CREATININE 0.4 mg/dL (0.55-1.3)
[2024-07-16 20:17] LABS: BILIRUBIN,TOTAL 0.3 mg/dL (0.2-1); TOT PROT 4.7 g/dl (6.4-8.2)
[2024-07-17 15:20] LABS: BASO % 0.3 % (0-2.0); HEMATOCRIT 23.9 % (35.4-49); HEMOGLOBIN 7.5 GM/dL (11.7-16.9); LYMPH % 15.3 % (8-40); MCH 30.8 pg (25.7-33.7); MCHC 31.4 g/dl (32.0-35.9); MEAN CELL VOLUME 98.1 fl (80-96); MEAN PLT VOLUME 7.8 fl (7.5-11.1); MONO % 7.7 % (3.8-10.2); NEUT % 74.7 % (42.8-82.8); PLATELET COUNT 346 10^3/uL (134-434); RBC 2.43 M/mm3 (4.00-5.60); RDW 21.1 % (11.9-15.9)
[2024-07-17 15:29] VITALS: BP 136/77; PULSE 93; TEMP 97.2
[2024-07-17 16:01] LABS: POTASSIUM 3.4 mmol/L (3.5-5.1)
[2024-07-17 16:02] LABS: CALCIUM 7.6 mg/dL (8.5-10.1)
[2024-07-17 16:03] LABS: ALBUMIN 1.3 g/dl (3.4-5.0); BLOOD UREA NITROGEN 10.1 mg/dL (7-18); MAGNESIUM 1.7 mg/dL (1.8-2.4)
[2024-07-17 16:06] LABS: CREATININE 0.3 mg/dL (0.55-1.3)
[2024-07-17 16:08] LABS: BILIRUBIN,TOTAL 0.3 mg/dL (0.2-1); TOT PROT 4.4 g/dl (6.4-8.2)
== END 2024-07-17 17:21 | DRG 871 ==
LOC: JER 17:52 → JERBED 19:20 → JICU 21:14 → J4S 07-03 15:32 → J7W 07-08 17:08
PROVIDERS: ADMIT Internal Medicine Pulmonary Disease
PROC: 4A133B1 Monitoring of Arterial Pressure, Peripheral, Percutaneous Approach (ICD-10-PCS; 2024-06-29)
PROC: 4A133J1 Monitoring of Arterial Pulse, Peripheral, Percutaneous Approach (ICD-10-PCS; 2024-06-29)
PROC: 05HM33Z Insertion of Infusion Device into Right Internal Jugular Vein, Percutaneous Approach (ICD-10-PCS; 2024-06-29)
PROC: B543ZZA Ultrasonography of Right Jugular Veins, Guidance (ICD-10-PCS; 2024-06-29)
PROC: 5A1945Z Respiratory Ventilation, 24-96 Consecutive Hours (ICD-10-PCS; principal; 2024-06-30)
PROC: 0BH17EZ Insertion of Endotracheal Airway into Trachea, Via Natural or Artificial Opening (ICD-10-PCS; 2024-06-30)
DX: A41.81 Sepsis due to Enterococcus (principal); J18.9 Pneumonia, unspecified organism; J96.01 Acute respiratory failure with hypoxia; R65.21 Severe sepsis with septic shock; E11.52 Type 2 diabetes mellitus with diabetic peripheral angiopathy with gangrene; I50.22 Chronic systolic (congestive) heart failure; J44.1 Chronic obstructive pulmonary disease with (acute) exacerbation; I48.20 Chronic atrial fibrillation, unspecified; I47.20 Ventricular tachycardia, unspecified; N39.0 Urinary tract infection, site not specified; F03.90 Unspecified dementia, unspecified severity, without behavioral disturbance, psychotic disturbance, mood disturbance, and anxiety; F31.9 Bipolar disorder, unspecified; I25.10 Atherosclerotic heart disease of native coronary artery without angina pectoris; E83.42 Hypomagnesemia; E83.39 Other disorders of phosphorus metabolism
CPT/HCPCS: 0241U-QW; 36415; 36600; 71045-TC-FY; 80048; 80053; 80076; 80164; 81003; 82272; 82308; 82607; 82728; 82747; 82803; 82962; 83540; 83550; 83605; 83735; 83880; 84100; 84439; 84443; 84484; 85014; 85025; 85027; 85045; 85610; 85730; 86140; 86850; 86900; 86901; 87040; 87070; 87086; 87186; 87205; 87481; 93005; 93010; 93306-TC; 93926-TC; 93931; 93971; 94002; 94640; 97161-GP; 99285-25; G0480; J0131; J0282; J1756; J3490